=== PATIENT | female | born 1980 | race African-American/Black ===

== ENCOUNTER → 2019-06-08 | Outpatient (CLI) | payer OTHER ==
[~2019-06-08] MED LIST: CLEOCIN HCL300 MG PO; DOXYCYCLINE 10100 M1 PO; FACE; IBUPROFEN 600600 M1 PO; IBUPROFEN 800800 M1 PO; NORCO 5-325 TA1 EACH PO; PERCOCET 5-3251 EACH PO; VALIUM2 MG PO
== END ==
LOC: RAD 15:59
DX: M47.816 Spondylosis without myelopathy or radiculopathy, lumbar region (principal); M46.06 Spinal enthesopathy, lumbar region; M48.07 Spinal stenosis, lumbosacral region; Q05.6 Thoracic spina bifida without hydrocephalus; G89.29 Other chronic pain; M25.552 Pain in left hip

== ENCOUNTER → 2020-03-20 | Outpatient (CLI) | payer OTHER | LOC: LAB 13:59 | PROVIDERS: ATTEND Nurse Practitioner | DX: R05 Cough (principal); R53.1 Weakness; M26.629 Arthralgia of temporomandibular joint, unspecified side; Z20.828 Contact with and (suspected) exposure to other viral communicable diseases ==

== ENCOUNTER → 2020-11-17 | Outpatient (CLI) | payer OTHER | LOC: LAB 07:49 | PROVIDERS: ATTEND Nurse Practitioner | DX: U07.1 COVID-19 (principal) ==

== ENCOUNTER 2021-01-18 04:30 | Emergency (ER) | payer OTHER ==
[~2021-01-18] VITALS: Ht 162.6 cm; Wt 90.3 kg
[2021-01-18 04:31] VITALS: BP 125/79
[2021-01-18] MEDS ORDERED: XANAX 0.25 MG0.25 MG PO (04:41)
[2021-01-18] MEDS ORDERED: PAXIL 20 MG TAB20 M1 PO (04:41)
[2021-01-18] MEDS ORDERED: BUPROPION (04:42)
== END 2021-01-18 05:23 | disposition left against medical advice (07) ==
LOC: ER 04:30
DX: R20.0 Anesthesia of skin (principal); Z53.21 Procedure and treatment not carried out due to patient leaving prior to being seen by health care provider

== ENCOUNTER → 2021-03-14 | Outpatient (CLI) | payer OTHER ==
[~2021-03-14] MED LIST changes: +BUPROPION; +PAXIL 20 MG TAB20 M1 PO; +XANAX 0.25 MG0.25 MG PO
== END ==
LOC: ULTRA 15:26
PROVIDERS: ATTEND Nurse Practitioner
DX: R93.89 Abnormal findings on diagnostic imaging of other specified body structures (principal); N92.5 Other specified irregular menstruation

== ENCOUNTER → 2021-04-19 | Outpatient (CLI) | payer OTHER | LOC: RAD 10:33 | PROVIDERS: ATTEND Nurse Practitioner | DX: N83.292 Other ovarian cyst, left side (principal); R19.7 Diarrhea, unspecified ==